=== PATIENT | female | born 1985 | race Caucasian/White ===

== ENCOUNTER 2016-05-12 16:26 | Emergency (ER) | payer OTHER ==
[2016-05-12 16:36] VITALS: BP 147/90
--- NOTE | 2016-05-12 18:26 | RAD ---
INDICATION: Tender "lump" palpable on the back of the patient's neck COMPARISON: None. TECHNIQUE: Axial source images were acquired with coronal and sagittal reformatting. FINDINGS: External BB is seen overlying the midline posterior cervical spine approximately at the C2 level. There is no subcutaneous underlying abnormality. There is nonspecific straightening of the normal cervical lordosis. The vertebral bodies and facet joints are otherwise appropriately aligned. There is no fracture or focal bony lesion. The canal and foramina appear widely patent. The odontoid and the atlantodental interval are normal. The prevertebral soft tissues appear normal. The visualized soft tissue elements of the neck are normal. The visualized lung apices are clear. There is soft tissue opacification filling the visualized lower portion of the right sphenoid sinus. The surrounding bone is intact. IMPRESSION: NONSPECIFIC STRAIGHTENING OF THE NORMAL CERVICAL LORDOSIS IN THIS OTHERWISE NORMAL CT OF THE CERVICAL SPINE.
--- NOTE | 2016-05-12 18:41 | UC ---
UC General HPI - HPI Summary HPI Summary: Patient complaining of a painful occiput, noted swelling and neck pain with movement. she denies any fever or cold symptoms, did just travel to and from [place] in a car. - History of Current Complaint Chief Complaint: UCGeneralIllness Stated Complaint: PAIN LEFT SIDE OF NECK Time Seen by Provider: 05/12/16 16:44 Hx Obtained From: Patient Onset/Duration: Sudden Onset, Lasting Weeks Timing: Constant Onset Severity: Moderate Current Severity: Moderate Pain Intensity: 6 Pain Location at: occiput Associated Signs & Symptoms: Positive: Edema, Headache - Allergy/Home Medications Allergies/Adverse Reactions: Allergies Allergy/AdvReac Type Severity Reaction Status Date / Time No Known Allergies Allergy Verified 05/12/16 16:36 PMH/Surg Hx/FS Hx/Imm Hx Previously Healthy: Yes Endocrine History Of: Denies: Diabetes Cardiovascular History Of: Reports: Hypertension - NO MEDS Denies: Cardiac Disorders, Pacemaker/ICD Respiratory History Of: Denies: COPD GI/ History Of: Denies: Ulcer, Renal Disease Neurological History Of: Denies: TIA Psychological History Of: Denies: Anxiety Cancer History Of: Denies: Lung Cancer - Surgical History Surgical History: Yes Surgery Procedure, Year, and Place: c section x 3- last section was 03/2014 and tubal;. laparoscopic cholecystectomy 04/2014; [facility]. tonsillectomy 2008, [facility]. left ACL 2011, [facility]. pilonidal cyst 2005, [place]. left knee 12/23. umbilical hernia repair 2007, [facility] Other Surgical History: ACL repair 3 yrs ago - completed PT w/ success; h/o wearing casts on her LE as an infant for "bowlegging"; pt reports having "high arches" - wore "flats" yesterday - does not wear supportive footwear in general - Family History Known Family History: Negative: Cardiac Disease, Hypertension Family History: no family history of cardio vascular diseases - Social History Alcohol Use: Occasionally Substance Use Type: None Smoking Status (MU): Heavy Every Day Tobacco Smoker Type: Cigarettes Amount Used/How Often: 5 CIGARETTES PER DAY FOR ABOUT 15 YEARS Length of Time of Smoking/Using Tobacco: 15 YEARS Have You Smoked in the Last Year: Yes Household Exposure Type: Cigarettes Review of Systems Constitutional: Negative Skin: Negative Eyes: Negative ENT: Negative Respiratory: Negative Cardiovascular: Negative Gastrointestinal: Negative Genitourinary: Negative Motor: Negative Neurovascular: Negative Musculoskeletal: Arthralgia, Edema, Myalgia Neurological: Negative Psychological: Negative All Other Systems Reviewed And Are Negative: Yes Physical Exam Triage Information Reviewed: Yes Appearance: Well-Appearing, No Pain Distress, Well-Nourished Vital Signs: Initial Vital Signs Temp 98.1 F 05/12/16 16:31 Pulse 74 05/12/16 16:31 Resp 16 05/12/16 16:31 BP 147/90 05/12/16 16:31 Pulse Ox 100 05/12/16 16:31 Vital Signs Reviewed: Yes Eye Exam: Normal Eyes: Positive: Conjunctiva Clear ENT Exam: Normal ENT: Positive: Normal ENT inspection, Pharyngeal erythema, TMs normal Dental Exam: Normal Neck exam: Normal Neck: Positive: Supple, No Lymphadenopathy, Tenderness @ Respiratory Exam: Normal Respiratory: Positive: Chest non-tender, Lungs clear, Normal breath sounds Cardiovascular Exam: Normal Cardiovascular: Positive: RRR, No Murmur, Pulses Normal Abdominal Exam: Normal Abdomen Description: Positive: Nontender, No Organomegaly, Soft Bowel Sounds: Positive: Present Musculoskeletal Exam: Normal Musculoskeletal: Positive: Strength Intact, ROM Intact, No Edema Neurological Exam: Normal Neurological: Positive: Alert, Muscle Tone Normal Psychological Exam: Normal Skin Exam: Normal Course/Dx - Course Course Of Treatment: hx obtained, exam performed, CT of neck obtained. - Differential Dx - Multi-Symptom Provider Diagnoses: muscle pain. edema Discharge - Discharge Plan Condition: Stable Disposition: HOME Patient Education Materials: Neck Pain (ED) Referrals: Thao TANNER,Mk Guaman [Primary Care Provider] - Additional Instructions: Continue taking aleve or advil routinely, use ice or heat which ever works beest. stretch out your shoulders and neck and follow up with a massage. Your CT today was negative.
== END 2016-05-12 18:42 | disposition home or self-care (01) ==
LOC: UCCORT 16:26
DX: M79.1 Myalgia (principal); R60.9 Edema, unspecified; R93.7 Abnormal findings on diagnostic imaging of other parts of musculoskeletal system; I10 Essential (primary) hypertension; F17.210 Nicotine dependence, cigarettes, uncomplicated
CPT/HCPCS: 72125; 99211; G0463

== ENCOUNTER 2016-05-21 16:18 | Emergency (ER) | payer OTHER | END 2016-05-21 17:00 | disposition left against medical advice (07) | LOC: UCCORT 16:18 | DX: Z53.21 Procedure and treatment not carried out due to patient leaving prior to being seen by health care provider (principal); M79.641 Pain in right hand ==

== ENCOUNTER 2016-09-03 13:56 | Emergency (ER) | payer OTHER ==
[2016-09-03 14:12] VITALS: BP 140/84
--- NOTE | 2016-09-03 15:16 | UC ---
Lower Extremity/Ankle HPI - HPI Summary HPI Summary: Patient has had reigh heel pain that has gotten much worse over the last week, swelling on the medial side of the foot, feels like stabbing pain. - History of Current Complaint Chief Complaint: UCLowerExtremity Stated Complaint: RIGHT FOOT PAIN Time Seen by Provider: 09/03/16 15:00 Hx Obtained From: Patient Hx Last Menstrual Period: 08/10/16 ?: No Onset/Duration: Sudden Onset, Lasting Weeks Severity Initially: Moderate Severity Currently: Severe Aggravating Factor(s): Standing, Ambulation Alleviating Factor(s): Rest Able to Bear Weight: Yes - with pain - Allergies/Home Medications Allergies/Adverse Reactions: Allergies Allergy/AdvReac Type Severity Reaction Status Date / Time No Known Allergies Allergy Verified 09/03/16 14:12 Home Medications: Home Medications NK [No Home Medications Reported] 09/03/16 [History Confirmed 09/03/16] PMH/Surg Hx/FS Hx/Imm Hx Previously Healthy: Yes Endocrine History Of: Denies: Diabetes Cardiovascular History Of: Reports: Hypertension - NO MEDS Denies: Cardiac Disorders, Pacemaker/ICD Respiratory History Of: Denies: COPD GI/ History Of: Denies: Ulcer, Renal Disease Neurological History Of: Denies: TIA Psychological History Of: Denies: Anxiety Cancer History Of: Denies: Lung Cancer - Surgical History Surgical History: Yes Surgery Procedure, Year, and Place: c section x 3- last section was 03/2014 and tubal;. laparoscopic cholecystectomy 04/2014; [facility]. tonsillectomy 2008, [facility]. left ACL 2011, [facility];. pilonidal cyst 2005, [place]. ACL repair repair 2016. hernia surgery 2007. left knee 12/23. umbilical hernia repair 2007, [facility] Other Surgical History: ACL repair 3 yrs ago - completed PT w/ success; h/o wearing casts on her LE as an infant for "bowlegging"; pt reports having "high arches" - wore "flats" yesterday - does not wear supportive footwear in general - Family History Known Family History: Negative: Cardiac Disease, Hypertension Family History: no family history of cardio vascular diseases - Social History Alcohol Use: Weekly Substance Use Type: None Smoking Status (MU): Heavy Every Day Tobacco Smoker Type: Cigarettes Amount Used/How Often: 1/2 PPD Length of Time of Smoking/Using Tobacco: 15 YEARS Have You Smoked in the Last Year: Yes Household Exposure Type: Cigarettes - Immunization History Most Recent Influenza Vaccination: none Review of Systems Constitutional: Negative Skin: Negative Eyes: Negative ENT: Negative Respiratory: Negative Cardiovascular: Negative Gastrointestinal: Negative Genitourinary: Negative Motor: Negative Neurovascular: Negative Musculoskeletal: Arthralgia, Decreased ROM, Edema Neurological: Negative Psychological: Negative All Other Systems Reviewed And Are Negative: Yes Physical Exam Triage Information Reviewed: Yes Appearance: Well-Appearing, Well-Nourished, Pain Distress Vital Signs: Initial Vital Signs Temp 99.3 F 09/03/16 14:03 Pulse 92 09/03/16 14:03 Resp 16 09/03/16 14:03 BP 140/84 09/03/16 14:03 Pulse Ox 99 09/03/16 14:03 Vital Signs Reviewed: Yes Eye Exam: Normal Eyes: Positive: Conjunctiva Clear ENT Exam: Normal ENT: Positive: Hearing grossly normal, Pharynx normal, TMs normal Dental Exam: Normal Neck exam: Normal Neck: Positive: Supple, Nontender, No Lymphadenopathy Respiratory Exam: Normal Respiratory: Positive: Chest non-tender, Lungs clear, Normal breath sounds Cardiovascular Exam: Normal Cardiovascular: Positive: RRR, No Murmur, Pulses Normal Abdominal Exam: Normal Abdomen Description: Positive: Nontender, No Organomegaly, Soft Bowel Sounds: Positive: Present Musculoskeletal Exam: Normal Musculoskeletal: Positive: Strength Intact, ROM Intact, Edema @ - right foot medial calf Neurological Exam: Normal Neurological: Positive: Alert, Muscle Tone Normal Psychological Exam: Normal Skin Exam: Normal Lower Extremity Course/Dx - Course Course Of Treatment: hx obtained, exam performed, meds reviewed, xray obtained, positive for small heel spur. educated on ice massage, elevation and heel cushions. stretching for plantar fasciaitis - Differential Dx/Diagnosis Differential Diagnosis/HQI/PQRI: Contusion, Dislocation, Fracture (Closed), Sprain, Strain, Tendonitis, Other - heel spur Provider Diagnoses: heel spur. plantar fasciaitis Discharge - Discharge Plan Condition: Stable Disposition: HOME Patient Education Materials: Heel Spur (ED), Plantar Fasciitis (ED) Referrals: Thao TANNER,Mk Guaman [Primary Care Provider] - Additional Instructions: 1. Use the heel cushions 2. Ice the heel 3. Elevated at rest 4. Ibuprofen for pain and swelling reduction 5. Follow up as needed
--- NOTE | 2016-09-03 15:53 | RAD ---
INDICATION: Right heel pain COMPARISON: None TECHNIQUE: AP, lateral, and oblique views of the right calcaneus were obtained. FINDINGS: There are no acute bony findings. There is a small Achilles calcaneal spur. The soft tissues appear normal. IMPRESSION: SMALL HEEL SPUR.
== END 2016-09-03 16:05 | disposition home or self-care (01) ==
LOC: UCCORT 13:56
DX: M77.31 Calcaneal spur, right foot (principal); M72.2 Plantar fascial fibromatosis; I10 Essential (primary) hypertension; Z90.49 Acquired absence of other specified parts of digestive tract; F17.210 Nicotine dependence, cigarettes, uncomplicated
CPT/HCPCS: 99211; G0463

== ENCOUNTER 2016-09-28 10:58 | Day surgery (SDC) | payer OTHER ==
--- NOTE | 2016-09-23 11:13 | HP ---
PREOPERATIVE HISTORY AND PHYSICAL: DATE OF ADMISSION/SURGERY: 09/28/16 DATE OF OFFICE VISIT: 09/22/16 ATTENDING SURGEON: Dr. Demetria Castillo. PROCEDURE: Left knee arthroscopic surgery, removal of hardware, and possible ACL reconstruction. CHIEF COMPLAINT: Left knee pain. HISTORY OF PRESENT ILLNESS: Cady is a 30-year-old female who presented to the clinic. She has a history of prior ACL reconstruction. She presents to the clinic with left knee pain and mild instab ility due to symptomatic hardware and a possible ACL reinjury. She has failed conservative measures and has therefore agreed to undergo a left knee arthroscopic surgery, removal of hardware, and poss ible ACL reconstruction. PAST MEDICAL HISTORY: Hypertension, history of superficial venous thrombosis versus DVT, gestationa l diabetes mellitus, anemia. PAST SURGICAL HISTORY: ACL reconstruction of the left knee in 2010, x3, tonsillectomy and adenoidectomy, wisdom teeth removal, umbilical hernia, pilonidal cyst removal. The patient denies prior complications with anesthesia. MEDICATIONS: Ibuprofen 600 mg as directed as needed for pain. ALLERGIES: No known drug allergies. FAMILY HISTORY: Positive for heart disease, cancer, and diabetes mellitus. SOCIAL HISTORY: She is . She lives with her . 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 She report s very occasional alcohol consumption. She is a current smoker, about half a pack per day. REVIEW OF SYSTEMS: General: Negative for fever, chills, or night sweats. No known anesthesia prob lems. HEENT: Negative for headache, lightheadedness, or syncopal episodes. Integumentary: Negati ve for abrasions, lesions, or open wounds. Cardiothoracic: Positive for hypertension. Denies ches t pain, palpitations, or edema. Pulmonary: Negative for shortness of breath with exertion, chronic cough, or COPD. GI: Negative for nausea, vomiting, diarrhea, or GERD. : Negative for nocturia , urinary frequency, urinary urgency, history of UTIs, or kidney problems. Musculoskeletal: Positi ve for the current complaint. Neuro: Negative for numbness, tingling, history of seizure, stroke, o r epilepsy. Endocrine: Negative for diabetes or thyroid issues. Heme: Negative for easy bruising, anemia, excessive bleeding. She does have a history of superficial venous thrombosis/DVT. Denies history of pulmonary embolism. Infectious Disease: Denies history of MRSA. PHYSICAL EXAMINATION GENERAL: Well-developed, well-nourished 30-year-old female in no acute distress. Alert and oriented x3. Appropriate mood and affect. VITAL SIGNS: Height 62, weight 179, pulse 64, blood pressure 138/88, respiratory rate 15, BMI 32.7. HEENT: Normocephalic, atraumatic. PERRLA. NECK: Supple. Throat clear. PULMONARY: Lungs clear to auscultation bilaterally. No wheezing, rhonchi, or rales. CARDIO: Regular rate and rhythm. S1 and S2. No murmurs, gallops, or rubs. No edema. ABDOMEN: Positive bowel sounds. Soft and nontender. NEURO: Alert and oriented x3. Cranial nerves grossly intact. Sensation intact to light touch. MUSCULOSKELETAL: Left knee: Skin is intact. No erythema or warmth. Well-healed surgical incision . Some swelling around the tibial incision. No effusion of the knee. Range of motion from 0 to 12 5. Stable to varus and valgus stress. Stable Gagan. Negative posterior drawer. Calves soft, no ntender, +2 dorsalis pedis and posterior tibialis pulses. Sensation intact to light touch distally. STUDIES: MRI of the left knee revealed an intact ACL, screws present with localized fluid collecti on. IMPRESSION: Symptomatic hardware on the left knee, status post prior ACL reconstruction, possible A CL reinjury. PLAN: The patient is scheduled to undergo a left knee arthroscopic surgery and removal of hardware, possible ACL reconstruction with Dr. Castillo on 09/28/16. She will return to the office 8 days post op for followup and suture removal. Percocet will be used for postoperative pain management. ARSLAN CRUZ [id number]/[facility] #: [id number]
[~2016-09-28 10:58] MED LIST: Dexamethasone IV* 4 MG/ML 1 ML (4 MG) IV SLOW PU ONE; Dexamethasone IV* 4 MG/ML 1 ML (4 MG) ONE; Famotidine IV* 10 MG/ML 2 ML (20 mg) IV ONE; Famotidine IV* 10 MG/ML 2 ML (20 mg) ONE
[2016-09-28] MEDS ORDERED: ceFAZolin 2 GM PREMIX(*) 2 GM/50 ML BAG IVPB ONE (11:54)
[2016-09-28] MEDS ORDERED: Bupivacaine 0.25% EPI 200,000* 30 ML SDV ONE (13:15)
[2016-09-28] MEDS ORDERED: Bupivacaine 0.25% SDV* 30 ML ONE (13:15)
[2016-09-28] MEDS ORDERED: Levalbuterol 0.63MG/3ML NEB INH ONE (13:16)
[2016-09-28] MEDS ORDERED: Midazolam* 1 MG/ML 5 ML VIAL (5 MG) ONE (13:18)
[2016-09-28] MEDS ORDERED: fentaNYL* 50 MCG/ML 5 ML VIAL (250 MCG VIAL) ONE (13:18)
[2016-09-28] MEDS ORDERED: Levalbuterol 1.25MG/0.5ML NEB ONE (13:19)
[2016-09-28] MEDS ORDERED: Propofol* 10 MG/ML 20 ML BTL IV PUSH ONE (13:20)
[2016-09-28] MEDS ORDERED: Ketorolac INJ* 30 MG/ML 1 ML VIAL ONE (13:20)
[2016-09-28] MEDS ORDERED: Lidocaine 2% PF * 5 ML VIAL ONE (13:20)
[2016-09-28] MEDS ORDERED: Ondansetron INJ* 2 MG/ML VIAL ONE (13:20)
[2016-09-28] MEDS ORDERED: DiMENhydriNATE IV* 50 MG/ML VIAL IV PUSH PRN (14:38)
[2016-09-28] MEDS ORDERED: Ondansetron INJ* 2 MG/ML VIAL IV PRN (14:38)
[2016-09-28] MEDS ORDERED: oxyCODONE/Acetamin 5/325 MG* TAB PO PRN (14:38)
[2016-09-28] MEDS ORDERED: HYDROmorphone* 1 MG/ML 1 ML SYR IV PRN (14:38)
[2016-09-28] MEDS ORDERED: fentaNYL* 50 MCG/ML 2 ML VIAL (100 MCG VIAL) IV PRN (14:38)
[2016-09-28] MEDS ORDERED: oxyCODONE/Acetamin 5/325 MG* TAB ONE (15:14)
[2016-09-28 15:39] VITALS: BP 135/76
--- NOTE | 2016-09-29 17:30 | OP ---
OPERATIVE REPORT: DATE OF OPERATION: 09/28/16 - [facility] DATE OF : 81 SURGEON: Demetria Castillo MD CONSULTING APPLICATION ENGINEER: ARSLAN Jesus An digital sales assistant was needed for the entirety of the case to help with positioning, retraction, and was utilized throughout all portions and present also in case there needed to be a revision ACL. ANESTHESIOLOGIST: Alexis Fall MD ANESTHESIA: General. PRE-OP DIAGNOSIS: Left knee symptomatic hardware with possible graft loss of purchase. POST-OP DIAGNOSIS: Symptomatic hardware. OPERATIVE PROCEDURE: Left knee arthroscopy with debridement of cyclops lesion and anterior synovectomy, as well as removal of hardware from tibial wound through a separate incision. COMPLICATIONS: None. ESTIMATED BLOOD LOSS: Minimal. TOURNIQUET TIME: Zero minutes. IMPLANTS USED: None. IMPLANT REMOVED: One [employer] biocomposite screw, 11 x 30 mm. INDICATIONS: Cady Christine is a 30-year-old female who underwent a revision ACL reconstruction on 01/23/16, which was a hamstring hybridization. She was doing well, although not compliant with postoperative instructions and she developed anterior tibial pain. She underwent MRI, which diagnosed her with symptomatic hardware. She is very tender over the screw. There is a small area of hyperactivity along the screw. An MRI was done, it did show that the graft had healed or incorporated partially. The risks and benefits of surgery versus nonoperative treatment were discussed at length. She has elected to proceed. We did discuss that if when the screw was removed, that the ACL was found to be not stabilized or intact, then we would consider revision ACL surgery. A graft was placed on hold as well as the arthroscopic ACL set. She has elected to proceed with surgery. DESCRIPTION OF PROCEDURE: The patient was greeted in the preoperative area by the attending surgeon. Correct extremity was marked and consent was confirmed. The patient was brought back to the operating suite, where she was placed in supine position on the operating table. She then underwent general anesthesia with LMA intubation, after which examination of the knee was done. She was found to have a 1A Gagan, negative posterior drawer, negative pivot shift. There is no effusion. Incisions were well healed. Range of motion was 0 to 130 degrees, after which an unsterile tourniquet was placed high in the proximal thigh. The lateral post was positioned as well as the 10-pound bag at the end of the table in case there was a need for an ACL reconstruction. After a miniature surgical pause, the left knee was intra-articularly injected with 0.25 % Marcaine with epi, after which the left leg was prepped and draped in the usual sterile fashion beginning with chlorhexidine, soap scrub, and alcohol wipe and a final prep with ChloraPrep. After appropriate surgical pause indicating site and side of procedure and administration of antibiotics, the anterolateral portals was made sharply with the 11 blade. The scope was introduced into the joint. The joint was examined. There was evidence of possible fraying of the graft and a small cyclops lesion. The anteromedial portal was then made using a needle to note localization. Shaver was then used to debride back the fraying parts of the graft; however, most of the graft was in placed. Anterior drawer was tested and this was remembered for later comparison views. There was abundant synovitis anteriorly, which was also removed using electrocautery device as well as the shaver. The patellofemoral joint had grade 0 to 1 changes, the medial compartment had grade 0 to 1 changes. The medial meniscus was intact, the lateral medial meniscus was intact as well. At this point, all fluid and debris was removed from the joint, and attention was directed to the tibial wound. The wound was then reopened with a 15 blade. There was abundant scar tissue that was apparent. There was no evidence of fluctuance or erythema, but there was reactive tissue that was present. This was then sharply excised. The tibial surface was then identified and the screw was carefully located. There was some bony overgrowth distally. This was carefully removed using an osteotome and rongeur. As the screw was tested, it was found to be completely loose without any purchase in the bone. The graft did not appear to move, however. So, after the excess bone was removed, the screw was then removed in its entirety. There was no evidence of any healing or any kind of reabsorption whatsoever. At this point, the Gagan was assessed and it had not changed at all. The scope was then positioned back into the joint and the knee had full range of motion again. Anterior drawer was assessed and found to be stable and the same compared to prior to removing the hardware. At this point, the fluid was kept on high and it was noted that there was no fluid extravasation into the tibial tunnel or out of tibial wound. The Gagan was checked again and again it was found to be stable. The pivot shift was found to be unchanged and it was found to be negative. At this point, decision was made to not carry through with the revision ACL reconstruction. The wounds were copiously irrigated with sterile saline. The scope was positioned inside the tibial tunnel and there was evidence of healed graft. The anterior wound was closed in layers with 2-0 Vicryl and then 3-0 nylon. The portals were closed with 3-0 nylon. The knee was intra-articularly injected with 0.25% Marcaine plain. Sterile dressings were applied as well as a Cryo/cuff. The patient was placed in a knee immobilizer, awoken from anesthesia and transferred to the PACU in stable condition. Postoperative plan: She will be discharged with antibiotics as well as pain medication. She will transition back into a hinged knee brace, unlocked, that she will wear for the next 4 weeks. She will be allowed to weightbear as tolerated. I will see the patient back approximately within the next week. CC: Primary Care Physician* [id number]/[facility] #: [id number] CHIARA
== END 2016-09-28 16:07 | disposition home or self-care (01) ==
LOC: OREAST 10:58
PROVIDERS: ATTEND Orthopaedic Surgery
DX: T84.84XA Pain due to internal orthopedic prosthetic devices, implants and grafts, initial encounter (principal); Y83.1 Surgical operation with implant of artificial internal device as the cause of abnormal reaction of the patient, or of later complication, without mention of misadventure at the time of the procedure; M65.862 Other synovitis and tenosynovitis, left lower leg; I10 Essential (primary) hypertension; F17.200 Nicotine dependence, unspecified, uncomplicated
CPT/HCPCS: 88300; A9270-GY; J0690; J1100; J1885; J2250; J2405; J2704; J3010

== ENCOUNTER 2017-01-09 16:23 | Emergency (ER) | payer OTHER ==
--- NOTE | 2017-01-09 16:58 | UC ---
Eye Complaint HPI - HPI Summary HPI Summary: 31 y/o female presents to the ER c/o Left eye with a foreign body stuck under the left upper eye lid since last night . She flushed her eye with water. Today her left eye is red and swollen with blurry vision and mild pain she does not wear contacts and denies any known foreign body now. She states she also has mild headache for the last two days with nasal congestion w/ mild discharge. Pt denies fever, SOB, chest pain, dizziness, - History of Current Complaint Stated Complaint: EYE IRRITATION Time Seen by Provider: 01/09/17 16:56 Hx Obtained From: Patient Hx Last Menstrual Period: 08/10/16 Onset/Duration: Gradual Onset, Lasting Days - 1 Timing: Days - 1 day Severity Initially: Mild Severity Currently: Moderate Pain Intensity: 7 - Headache Pain Scale Used: 0-10 Numeric Location of Injury: Conjunctiva - redness, with clear eye discharge Character: Foreign Body Sensation Aggravating Factor(s): Blinking Alleviating Factor(s): Nothing Associated Signs And Symptoms: Positive: Negative, Drainage (Clear), Vision Impairment Left, Swelling - mild. Negative: Fever Related History: Foreign Body - Risk Factors Penetrating Injury Risk Factor: Negative Globe Rupture Risk Factors: Negative Acute Glaucoma Risk Factors: Negative Optic Artery Occlusion Risk Factors: Negative - Allergies/Home Medications Allergies/Adverse Reactions: Allergies Allergy/AdvReac Type Severity Reaction Status Date / Time No Known Allergies Allergy Verified 01/09/17 17:02 Home Medications: Home Medications Ibuprofen TAB* [Motrin TAB* 600 MG] 600 mg PO Q6H PRN 01/09/17 [History Confirmed 01/09/17] PMH/Surg Hx/FS Hx/Imm Hx Previously Healthy: Yes Endocrine History: Diabetes - Gestational DM Cardiovascular History: Hypertension - Diet control - Surgical History Surgical History: Yes Surgery Procedure, Year, and Place: - 2001- [place]- [place] , TUBAL LIGATION- 2010- [place]. [place] ACL [place]PA[place]- [place] LAPAROSCOPIC CHOLECYSTECTOMY- 04/2014- [facility] – [place], [place]. ACL REPAIR 12/2015 [facility] [place]. Other Surgical History: ACL repair 3 yrs ago - completed PT w/ success; h/o wearing casts on her LE as an infant for "bowlegging"; pt reports having "high arches" - wore "flats" yesterday - does not wear supportive footwear in general - Family History Known Family History: Positive: Hypertension Negative: Cardiac Disease Family History: no family history of cardio vascular diseases - Social History Occupation: Employed Full-time Lives: With Family Alcohol Use: Weekly Alcohol Amount: 1 DAY Substance Use Type: Cocaine Substance Use Comment - Amount & Last Used: COCAINE 2 WEEKS AGO Smoking Status (MU): Heavy Every Day Tobacco Smoker Type: Cigarettes Amount Used/How Often: 1/2 PPD FOR 14 Length of Time of Smoking/Using Tobacco: 14 YRS Have You Smoked in the Last Year: No Household Exposure Type: Cigarettes - Immunization History Most Recent Influenza Vaccination: none Review of Systems Constitutional: Negative Skin: Negative Eyes: Blurred Vision, Eye Redness - LF eye with mild swelling ENT: Nasal Discharge - clear, Sinus Congestion Respiratory: Negative Cardiovascular: Negative Gastrointestinal: Negative Genitourinary: Negative Motor: Negative Neurovascular: Negative Musculoskeletal: Negative Neurological: Headache - mild Psychological: Negative All Other Systems Reviewed And Are Negative: Yes Physical Exam Triage Information Reviewed: Yes Appearance: Well-Appearing, No Pain Distress, Well-Nourished Vital Signs Reviewed: Yes Eyes: Positive: Conjunctiva Inflamed - PERRLA, EOMI, B/L fundi grossly normal. LF conjunctiva injected and both eye lid mildly swollen,, clear eye discharge. Both eye lid inverted and no foreign body observed with naked eye. ENT Exam: Normal ENT: Positive: Normal ENT inspection, Hearing grossly normal, Pharynx normal, TMs normal Dental Exam: Normal Neck exam: Normal Neck: Positive: Supple, Nontender, No Lymphadenopathy Respiratory Exam: Normal Respiratory: Positive: Chest non-tender, Lungs clear, Normal breath sounds Cardiovascular Exam: Normal Cardiovascular: Positive: RRR, No Murmur, Pulses Normal Abdominal Exam: Normal Abdomen Description: Positive: Nontender, No Organomegaly, Soft. Negative: CVA Tenderness (R), CVA Tenderness (L) Bowel Sounds: Positive: Present Musculoskeletal Exam: Normal Musculoskeletal: Positive: Strength Intact, ROM Intact, No Edema Neurological Exam: Normal Psychological Exam: Normal Skin Exam: Normal Eye Complaint Course/Dx - Course Course Of Treatment: 31 y/o female presents to the ER c/o Left eye with a foreign body stuck under the left upper eye lid since last night . She flushed her eye with water. Today her left eye is red and swollen with blurry vision and mild pain she does not wear contacts and denies any known foreign body now. She states she also has mild headache for the last two days with nasal congestion w/ mild discharge. Pt denies fever, SOB, chest pain, dizziness, HX obtained. PE abnormal findings:PERRLA, EOMI, B/L fundi grossly normal. LF conjunctiva injected and both eye lid mildly swollen,, clear eye discharge. Both eye lid inverted and no foreign body observed with naked eye. 2 drops of Tetracaine optha drops placed on Pts left eye, then irrigated with saline drops to flush any foreign particles, then fluorescein instillation and examination with a slit lamp. No corneal abrasion observed. transparent thread or fiber removed. After procedure Pt felt better. Pt Rx Erythromycin ophthalmic ointment and dispensed at the clinic since pharmacy is closed today. Pt advised to f/u with opthalmologis on Wednesday as soon as possible for further evaluation and treatment if symptoms do not improve. Pt BP elevated today, advised decrease salt in diet and monitor BP and f.u with PCP for further treatment, Pt understood and agreed. - Differential Dx/Diagnosis Differential Diagnosis/HQI/PQRI: Conjunctivitis, Corneal Abrasion, Foreign Body , Orbital Cellulitis Provider Diagnoses: 1- Left eye foreign body. 2- Uncontrolled HTN Discharge - Discharge Plan Condition: Stable Disposition: HOME Prescriptions: Erythromycin OPTH OINT* [Erythromycin 0.5% OPTH OINT*] 1 applic LEFT EYE QID #1 ophth.oint Patient Education Materials: Eye Foreign Body (ED), Low Sodium Diet (ED) Referrals: Thao TANNER,Mk Guaman [Primary Care Provider] - Bolivar Irizarry MD [Medical Doctor] - 2 Days Additional Instructions: 1-Please apply ophthalmic ointment to alleviate symptoms. 2-Continue taking Ibuprofen q6-8hrs prn to alleviate pain and swelling. 3- Please F/u with Opthalmologist Dr Irizarry as soon as possible on Wednesday. 4- If you do not improve or if symptoms worsen please go to the Er immediately for further evaluation and treatment 5- Your BP today is elevated, please decrease salt in your diet, monitor your BP , if it continues to be elevated please f/y with your PCP for further management.
[2017-01-09 17:02] VITALS: BP 153/90
[2017-01-09] MEDS ORDERED: Tetracaine 0.5% OPTH.SOL 4 ML* 1 DROP BTL LEFT EYE ONE (17:05)
[2017-01-09] MEDS ORDERED: Fluorescein Sodium TOPICAL* 1 MG TEST OPHTHALMIC ONE (17:17)
[2017-01-09] MEDS ORDERED: Erythromycin OPTH OINT* APPLIC OINT ONE (18:00)
[2017-01-09] MEDS ORDERED: Erythromycin OPTH OINT* APPLIC OINT LEFT EYE SCH ×2 (21:00)
== END 2017-01-09 18:09 | disposition home or self-care (01) ==
LOC: UCCORT 16:23
DX: T15.92XA Foreign body on external eye, part unspecified, left eye, initial encounter (principal); X58.XXXA Exposure to other specified factors, initial encounter; I10 Essential (primary) hypertension; F14.90 Cocaine use, unspecified, uncomplicated; F17.210 Nicotine dependence, cigarettes, uncomplicated
CPT/HCPCS: 99212; A9270-GY; G0463

== ENCOUNTER 2019-06-11 15:47 | Emergency (ER) | payer BC, OTHER ==
[2019-06-11 17:54] VITALS: BP 171/98
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
[2019-06-11] MEDS ORDERED: traMADol TAB* 50 MG PO ONE (18:34)
--- NOTE | 2019-06-12 19:54 | UC ---
- Progress Note Progress Note: Final radiologist reading of right hand and right wrist x-ray from June 11, 2019 comes back as soft tissue swelling no fracture. Provider interpretation same date is the same therefore there is no discrepancy. Course/Dx - Diagnoses Provider Diagnoses: Contusion of right hand Discharge ED - Sign-Out/Discharge Documenting (check all that apply): Patient Departure All imaging exams completed and their final reports reviewed: Yes - Discharge Plan Condition: Good Disposition: HOME Prescriptions: Tramadol HCl 50 mg PO BEDTIME 5 Days #5 tablet MDD mdd: 50mg Patient Education Materials: Wrist Injury (ED) Referrals: Mk Osuna PA [Primary Care Provider] - Additional Instructions: YOur blood pressure is elevated today, please discuss with your primary care. - Billing Disposition and Condition Condition: GOOD Disposition: Home
== END 2019-06-11 18:49 | disposition home or self-care (01) ==
LOC: UCCORT 15:47
DX: S60.221A Contusion of right hand, initial encounter (principal); Y04.0XXA Assault by unarmed brawl or fight, initial encounter; Y92.9 Unspecified place or not applicable; I10 Essential (primary) hypertension; F17.210 Nicotine dependence, cigarettes, uncomplicated; Z79.899 Other long term (current) drug therapy
CPT/HCPCS: 99212; A9270-GY; G0463